=== PATIENT | male | born 1970 | race Caucasian/White ===

== ENCOUNTER 2021-09-13 20:36 | Emergency (ER) | payer OTHER, SELFPAY ==
[2021-09-13 21:12] VITALS: BP 131/88; PULSE 85; RESP 16; TEMP 35.8; O2SAT 94; BMI 29.7
--- NOTE | 2021-09-13 21:46 | ED_ITS ---
HPI - Fever General Date Seen: 09/13/21 Chief Complaint: Fever Stated Complaint: Fever Time Seen by Provider: 09/13/21 21:15 Source: patient Mode of arrival: ambulatory Limitations: no limitations History of Present Illness HPI Narrative: Patient is a 51-year-old gentleman who presents here with fever and chills over the last 3-4 days. He describes fever up to 102- at home. Takes ibuprofen the fever comes down. No other localizing symptoms other than he was bit by something on his right popliteal fossa, he did not remove anything from here and does not think it was a tick. Just a red area. Denies a sore throat, denies cough, denies nausea abdominal pain, slight headache initially, but then this resolved. Describes himself as otherwise healthy, hypertension, No previous history of Lyme disease, did take 2 separate COVID test at home over the past 4 days that were negative. 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.) Exacerbating factors: nothing Relieving factors: acetaminophen and ibuprofen Associated symptoms: denies other symptoms Treatments prior to arrival fever: ibuprofen Related Data Home Medications Medication Instructions Recorded Confirmed atorvastatin 40 mg tablet 40 mg PO .QHS 09/13/21 09/13/21 Previous Rx's Medication Instructions Recorded metoprolol succinate 50 mg 50 mg PO QDAY #90 tab 08/20/21 tablet,extended release 24 hr amlodipine 5 mg tablet 5 mg PO QDAY #90 tab 08/24/21 omeprazole 40 mg capsule,delayed 40 mg PO QDAY #90 cap 08/24/21 release Allergies Allergy/AdvReac Type Severity Reaction Status Date / Time rosuvastatin Allergy Intermediate Hives Verified 09/13/21 21:18 Review of Systems Status of ROS Reports: 10 or more systems reviewed and unremarkable except as noted in History and below [facility] Medical History Chronic low back pain GERD (gastroesophageal reflux disease) Hypertension Surgical History S/P right rotator cuff repair Exam Narrative Exam Narrative: Patient is a very nice 51-year-old gentleman who does not look at all unwell. Nontoxic, speaking to me normally is pupils equal round reactive to light there is no scleral icterus or redness TMs are normal oropharynx normal there is no adenopathy anterior posterior chains chest is clear bilaterally with no wheezing crackles noted heart sounds no clicks murmurs or gallops his abdomen is soft there is no guarding no past splenomegaly bowel sounds are normal. Skin reveals over the right popliteal fossa there is an area of redness with a central area. But not a target lesion. Joints all move normal normal power in his upper lower extremities. No other redness is noted. Const Vital Signs, click to edit/add: Vital Signs - 24 hr 09/13/21 21:12 Temperature 96.4 F L Pulse Rate [Left Pulse Oximeter] 85 Respiratory Rate 16 Blood Pressure [Left Upper Arm] 131/88 Pulse Oximetry 94 Documenting provider has reviewed patient's vital signs: yes Common normals: no apparent distress Course Vital Signs Vital signs: Initial Vital Signs Temperature 96.4 F L 09/13/21 21:12 Temperature Source Temporal Artery Scan 09/13/21 21:12 Pulse Rate 85 09/13/21 21:12 Pulse Rhythm 09/13/21 21:12 Respiratory Rate 16 09/13/21 21:12 Blood Pressure 131/88 09/13/21 21:12 Blood Pressure Mean 102 09/13/21 21:12 Blood Pressure Position Sitting 09/13/21 21:12 Pulse Oximetry 94 09/13/21 21:12 Oxygen Delivery Method 09/13/21 21:12 Vital Signs Temperature 96.4 F L 09/13/21 21:12 Pulse Rate 85 09/13/21 21:12 Respiratory Rate 16 09/13/21 21:12 Blood Pressure 131/88 09/13/21 21:12 Pulse Oximetry 94 09/13/21 21:12 Temperature 96.4 F L 09/13/21 21:12 Pulse Rate 85 09/13/21 21:12 Respiratory Rate 16 09/13/21 21:12 Blood Pressure 131/88 09/13/21 21:12 Pulse Oximetry 94 09/13/21 21:12 MDM - Fever MDM Narrative Medical decision making narrative: Life-threatening differential diagnosis is include meningitis, encephalitis, pneumonia, intra-abdominal infection, bacteremia, other differential diagnosis include but are not limited to viral upper respiratory tract infection, strep, urinary tract infection, skin infection, osteomyelitis, influenza, fungal infections, diskitis, epidural abscess, or fever of unknown origin. I discussed with the patient the laboratory results were all very reassuring with a normal white count, normal LFTs, undo tick-borne illness testing, on the 1st occurrence, this is consistent with up-to-date so recommendation. Follow-up with primary care suggested, but given his history and course in where he works, and his exposure I do not think it is unreasonable to give him a course of doxycycline, 100 mg p.o. b.i.d. for the next 14 days. Differential Diagnosis Differential diagnosis: Likely cellulitis, fever of unknown origin, gastroenteritis, community acquired pneumonia, viral infection, sepsis and influenza Medical Records Attestation: I reviewed the patient's medical records. Lab Data Attestation: I reviewed the patient's lab results. Labs: Lab Results 09/13/21 09/13/21 09/13/21 Range/Units 22:12 22:12 22:12 WBC 4.71 (4.50-11.00) K/uL RBC 4.65 (4.30-5.90) m/uL Hgb 13.9 (13.5-17.5) gm/dL Hct 41.3 (37.0-53.0) % MCV 89 (80-100) fL MCH 30 (26-34) pg MCHC 34 (32-36) gm/dL RDW Coeff of Charles 12.6 (11.5-15.5) % Plt Count 153 (140-440) K/uL Neut % (Auto) 67.3 (42.0-72.0) % Lymph % (Auto) 15.3 L (20-44) % [place] % (Auto) 15.7 H (0.0-11.0) % Eos % (Auto) 1.3 (0.0-7.0) % Baso % (Auto) 0.4 (0.0-3.0) % Neut # (Auto) 3.17 (1.7-7.0) K/uL Lymph # (Auto) 0.70 L (0.90-2.90) K/uL [place] # (Auto) 0.70 (0.00-0.90) K/UL Eos # (Auto) 0.06 (0.00-0.50) K/uL Baso # (Auto) 0.02 (0.00-0.30) K/uL Abs Immat Gran (auto) 0.00 (0.00-0.30) K/uL Lactate 0.9 (0.5-1.9) mmol/L Total Bilirubin 0.6 (0.1-1.5) mg/dL Direct Bilirubin 0.2 (0.0-0.5) mg/dL AST 56 H (12-35) U/L ALT 68 H (4-50) U/L Alkaline Phosphatase 82 (40-150) U/L Total Protein 7.4 (6.0-8.3) g/dL Albumin 4.3 (3.3-5.0) g/dL SARS-CoV-2 (PCR) (Negative) Influenza Type A (PCR) (Negative) Influenza Type B (PCR) (Negative) RSV (PCR) (Negative) Group A Strep DNA (No Detected) 09/13/21 09/13/21 Range/Units 22:12 22:12 WBC (4.50-11.00) K/uL RBC (4.30-5.90) m/uL Hgb (13.5-17.5) gm/dL Hct (37.0-53.0) % MCV (80-100) fL MCH (26-34) pg MCHC (32-36) gm/dL RDW Coeff of Charles (11.5-15.5) % Plt Count (140-440) K/uL Neut % (Auto) (42.0-72.0) % Lymph % (Auto) (20-44) % [place] % (Auto) (0.0-11.0) % Eos % (Auto) (0.0-7.0) % Baso % (Auto) (0.0-3.0) % Neut # (Auto) (1.7-7.0) K/uL Lymph # (Auto) (0.90-2.90) K/uL [place] # (Auto) (0.00-0.90) K/UL Eos # (Auto) (0.00-0.50) K/uL Baso # (Auto) (0.00-0.30) K/uL Abs Immat Gran (auto) (0.00-0.30) K/uL Lactate (0.5-1.9) mmol/L Total Bilirubin (0.1-1.5) mg/dL Direct Bilirubin (0.0-0.5) mg/dL AST (12-35) U/L ALT (4-50) U/L Alkaline Phosphatase (40-150) U/L Total Protein (6.0-8.3) g/dL Albumin (3.3-5.0) g/dL SARS-CoV-2 (PCR) Negative SARS-CoV-2 (Negative) Influenza Type A (PCR) Negative PCR FLU A (Negative) Influenza Type B (PCR) Negative PCR FLU B (Negative) RSV (PCR) Negative PCR RSV (Negative) Group A Strep DNA NOT DETECTED (No Detected) ABG Data Attestation: I personally reviewed and interpreted this ABG as follows: Imaging Data Chest x-ray: Attestation: I have reviewed the pertinent imaging results. My impression: Negative chest Radiologist's impression: Negative chest Discharge Plan Discharge Clinical Impression: Fever Qualifiers: Fever type: unspecified Qualified Code(s): R50.9 - Fever, unspecified Insect bite Qualifiers: Site of insect bite: lower leg Patient Disposition: Home, Self-Care Condition: Stable Instructions: Tick Bite (ED), Fever in Adults (ED) Activity Detail: home, rest and follow up with primary care if ongoing symptoms Prescriptions: No Action atorvastatin 40 mg tablet 40 mg PO .QHS 0RF Label Comments: TAKE 1 TABLET BY MOUTH AT BEDTIME metoprolol succinate 50 mg tablet extended release 24 hr 50 mg PO QDAY Qty: 90 1RF omeprazole 40 mg capsule,delayed release(DR/EC) 40 mg PO QDAY Qty: 90 3RF amlodipine 5 mg tablet 5 mg PO QDAY Qty: 90 1RF Follow Up/Referrals: Wayne Mcdowell MD [Primary Care Provider] - Stand Alone Forms: [employer] Info Instructions
--- NOTE | 2021-09-13 21:50 | CRLHL7_ITS ---
For Patients: As a result of the Cures Act, medical imaging exams and procedure reports are released immediately into your electronic medical record. You may view this report before your referring provider. If you have questions, please contact your health care provider. INDICATION: Shortness of breath. Fever TECHNIQUE: Chest radiograph 2 views COMPARISON: None FINDINGS: Mediastinum: The mediastinum is normal in appearance. The heart silhouette is normal in size and morphology. Lung: Both lungs are unremarkable in appearance. No sign of pleural effusion seen. No pneumothorax is identified. Bone and Soft tissue: Unremarkable for age. A left chest loop recorder is noted. IMPRESSION: 1. No acute cardiopulmonary disease is seen. Dictated by: Justin Carbajal MD @ 09/13/2021 23:09:09 (Electronically Signed)
[2021-09-13 22:16] LABS: Lactate* 0.9 mmol/L (0.5-1.9)
[2021-09-13 22:24] LABS: Basophils Absolute Auto 0.02 K/uL (0.00-0.30); Basophils Percent Auto 0.4 % (0.0-3.0); Eosinophils Absolute Auto 0.06 K/uL (0.00-0.50); Eosinophils Percent Auto 1.3 % (0.0-7.0); Hematocrit 41.3 % (37.0-53.0); Hemoglobin* 13.9 gm/dL (13.5-17.5); Lymphocytes Percent Auto 15.3 % (20-44); Mean Corpuscular HGB Conc 34 gm/dL (32-36); Mean Corpuscular Hemoglobin 30 pg (26-34); Mean Corpuscular Volume 89 fL (80-100); Monocytes Percent Auto 15.7 % (0.0-11.0); Neutrophils Absolute Auto 3.17 K/uL (1.7-7.0); Neutrophils Percent Auto 67.3 % (42.0-72.0); Platelet Count* 153 K/uL (140-440); RDW Coefficient of Variation % 12.6 % (11.5-15.5); Red Blood Count 4.65 m/uL (4.30-5.90); White Blood Count* 4.71 K/uL (4.50-11.00)
[2021-09-13 22:40] LABS: Albumin* 4.3 g/dL (3.3-5.0)
[2021-09-13 22:43] LABS: Aspartate Amino Transferase* 56 U/L (12-35); Bilirubin Direct* 0.2 mg/dL (0.0-0.5); Bilirubin Total* 0.6 mg/dL (0.1-1.5); Total Protein* 7.4 g/dL (6.0-8.3)
[2021-09-13 22:44] LABS: Alanine Aminotransferase* 68 U/L (4-50); Alkaline Phosphatase* 82 U/L (40-150)
[2021-09-13 23:08] LABS: Slide Review Reflex No; Strep A DNA Probe* NOT DETECTED (No Detected)
[2021-09-13 23:21] LABS: PCR FLU A Negative PCR FLU A (Negative); PCR FLU B Negative PCR FLU B (Negative); PCR RSV Negative PCR RSV (Negative)
[2021-09-13 23:35] LABS: SARS PCR* Negative SARS-CoV-2 (Negative)
== END 2021-09-13 23:45 | disposition home or self-care (01) ==
LOC: ED 23:44
PROVIDERS: Emergency Provider Family Medicine; PCP Family Medicine
DX: R50.9 Fever, unspecified (principal); S80.861A Insect bite (nonvenomous), right lower leg, initial encounter
CPT/HCPCS: 36415; 71046; 80076; 83605; 85025; 87040; 87502; 87634; 87635; 87651; 99284

== ENCOUNTER 2021-10-13 09:38 | Outpatient (CLI) | payer OTHER, SELFPAY ==
[2021-10-13 15:19] LABS: Chloride* 105 mmol/L (96-114); Potassium* 4.4 mmol/L (3.6-5.1); Sodium* 141 mmol/L (135-149)
[2021-10-13 15:21] LABS: Creatinine* 0.9 mg/dL (0.5-1.5); Estimated Glomerular Filt Rate 104 ml/min
[2021-10-13 15:22] LABS: Blood Urea Nitrogen* 14 mg/dL (7-30); Calcium* 9.4 mg/dL (8.4-10.6); Carbon Dioxide* 27 mmol/L (20-32); Glucose* 101 mg/dL (60-115)
== END 2021-10-13 09:39 | disposition home or self-care (01) ==
PROVIDERS: PCP Family Medicine; Visit Provider Family Medicine
DX: I10 Essential (primary) hypertension (principal); W57.XXXA Bitten or stung by nonvenomous insect and other nonvenomous arthropods, initial encounter
CPT/HCPCS: 80048; 86618

== ENCOUNTER 2022-12-03 08:51 | Outpatient (CLI) | payer OTHER, SELFPAY | END 2022-12-03 08:52 | disposition home or self-care (01) | PROVIDERS: PCP Family Medicine; Visit Provider Family Medicine | DX: Z12.5 Encounter for screening for malignant neoplasm of prostate (principal); I10 Essential (primary) hypertension; E78.2 Mixed hyperlipidemia; K21.9 Gastro-esophageal reflux disease without esophagitis | CPT/HCPCS: 80048; 80061; 84153; 84460 ==

== ENCOUNTER 2024-02-23 09:27 | Outpatient (CLI) | payer OTHER, SELFPAY ==
[2024-02-23 14:37] LABS: Chloride* 101 mmol/L (96-114); Potassium* 4.6 mmol/L (3.6-5.1); Sodium* 140 mmol/L (135-149)
[2024-02-23 14:39] LABS: Cholesterol* 152 mg/dL (90-199)
[2024-02-23 14:40] LABS: Alanine Aminotransferase* 51 U/L (4-50); Anion Gap 8 mEq/L (7-15); Blood Urea Nitrogen* 14 mg/dL (7-30); Calcium* 9.3 mg/dL (8.4-10.6); Carbon Dioxide* 31 mmol/L (20-32); Creatinine* 0.9 mg/dL (0.5-1.5); Estimated Glomerular Filt Rate 103 ml/min; Glucose* 108 mg/dL (60-115); Triglycerides* 182 mg/dL (40-149)
[2024-02-23 14:41] LABS: HDL Cholesterol* 33 mg/dL (>=40); LDL Cholesterol Calculated 83 mg/dL (<100)
[2024-02-23 15:12] LABS: PSA Screen* 0.96 ng/mL (0.10-4.00)
== END 2024-02-23 09:28 | disposition home or self-care (01) ==
PROVIDERS: PCP Family Medicine; Visit Provider Family Medicine
DX: I10 Essential (primary) hypertension (principal); E78.2 Mixed hyperlipidemia; Z12.5 Encounter for screening for malignant neoplasm of prostate
CPT/HCPCS: 80048; 80061; 84460; G0103

== ENCOUNTER 2024-06-26 09:09 | Outpatient (CLI) | payer OTHER, SELFPAY ==
--- NOTE | 2024-06-26 09:15 | MR_ITS ---
[address] [address] Phone:?[phone] Fax:?[phone] Referring Physician Information: Terell Mercedes M.D. [id number] [facility] [address] Phone:?[phone] Fax:?[phone] Patient:Rodriguez Dunlap.O.B:?1970 Sex:?Male Phone:?[phone] [facility] MRN:?[id number] Exam Date:?06/26/2024 EXAM: MRI OF THE LEFT SHOULDER CLINICAL INFORMATION: The patient is a 53-year-old with left shoulder pain. Evaluate rotator cuff. PRIOR SURGERY: None reported. COMPARISON STUDIES: Comparison is made to the prior MRI examination dated 08/08/2020. TECHNICAL INFORMATION: Imaging was performed on a high-field, 1.5 Chio MR scanner. Axial, coronal, and sagittal proton-density and T2 imaging was performed in addition to coronal STIR imaging. FINDINGS: Articular/Extraarticular collections: Effusion: Minimal. Subacromial/subdeltoid: Mild to moderate fluid is seen within the subacromial/subdeltoid bursa, in keeping with changes of bursitis. Subcoracoid: Mild to moderate fluid is seen within the subcoracoid bursa, in keeping with changes of bursitis. Osseous structures: Proximal humerus: Cortical irregularity, subcortical cystic change, and subcortical edema can be seen involving the greater and lesser tuberosity regions, in keeping with the rotator cuff pathology discussed below. There is no evidence for greater or lesser tuberosity fracture. No Hill-Sachs or reverse Hill-Sachs lesion is identified. Glenoid: No acute bony abnormality of the glenoid fossa or glenoid neck can be seen. Acromioclavicular joint: Mild to moderate changes of acromioclavicular joint arthrosis are present and can be seen on coronal series 5 image 14 and on sagittal series 9 image 14. Coracoacromial arch: Acromion morphology: Type II. No evidence for os acromiale. Acromiohumeral space: Mildly narrowed. Coracohumeral space: Moderately narrowed. Rotator cuff and deltoid: Supraspinatus: Moderate changes of supraspinatus tendinosis can be seen. There is a superimposed focus of full-thickness or near full-thickness tearing of the anterior and distal tendon fibers, seen to best advantage on coronal series 5 images 13 and 14 and on sagittal series 9 image 6. The area of tearing measures 8 mm in mediolateral dimension and 9 mm in anteroposterior dimension. No evidence for retraction is seen, however the findings have progressed in appearance when compared to the prior study. No atrophic changes of the supraspinatus muscle belly are identified. Infraspinatus: Moderate infraspinatus tendinosis can be seen. No full or partial-thickness tearing is identified. No atrophic changes of the infraspinatus muscle belly are present. Teres minor: No evidence for tendinosis, tearing, or associated muscle belly atrophy. Subscapularis: Moderate subscapularis tendinosis can be seen. There is no evidence for full or partial-thickness tearing. No atrophic changes of the subscapularis muscle belly are noted. Deltoid: No evidence for strain or tearing. Biceps tendon: The intra-articular and biceps sulcus portions of the biceps tendon are normal. There is no evidence for rupture, dislocation, or subluxation. Glenohumeral joint and labrum: Articular Cartilage: No well-defined full-thickness chondral defects can be seen along the articular surfaces of the glenohumeral articulation. No osteoarthritic changes are seen. Labrum: Poorly defined tearing of the superior and posterior portions of the glenoid labrum can be seen without evidence for injury to the anterior or inferior portions of the labrum. No paralabral ganglion cyst formation is identified. Capsular Soft Tissues: No definite capsular abnormalities of the glenohumeral joint are seen. No evidence for capsular tearing is present and there are no MR signs of adhesive capsulitis. CONCLUSION: 1. Moderate supraspinatus, infraspinatus, and subscapularis tendinosis with a focal area of full-thickness or near full-thickness tearing involving the anterior and distal tendon fibers as described above. The tearing has progressed in appearance when compared to the prior examination. 2. Mild to moderate bursitis can be seen involving the subacromial/subdeltoid and subcoracoid bursae. 3. Mild to moderate acromioclavicular joint arthrosis with mild narrowing of the acromiohumeral space. 4. The long head of the biceps tendon appears intact. 5. Poorly defined tearing of the superior and posterior portions of the glenoid labrum. AEC Electronically signed on 06/26/2024 12:08:00 PM by Vitaliy Julien M.D.
== END 2024-06-26 09:10 | disposition home or self-care (01) ==
PROVIDERS: PCP Family Medicine; Visit Provider Orthopaedic Surgery Sports Medicine
DX: M25.512 Pain in left shoulder (principal); M75.102 Unspecified rotator cuff tear or rupture of left shoulder, not specified as traumatic; M75.52 Bursitis of left shoulder; M19.012 Primary osteoarthritis, left shoulder; S43.432A Superior glenoid labrum lesion of left shoulder, initial encounter
CPT/HCPCS: 73221

== ENCOUNTER 2024-07-20 11:35 | Outpatient (CLI) | payer OTHER, SELFPAY | END 2024-07-20 11:36 | disposition home or self-care (01) | PROVIDERS: PCP Family Medicine; Visit Provider Family Medicine | DX: I10 Essential (primary) hypertension (principal); Z01.818 Encounter for other preprocedural examination | CPT/HCPCS: 80048; 85025 ==

== ENCOUNTER 2024-07-26 09:12 | Day surgery (SDC) | payer OTHER, SELFPAY ==
[2024-07-26] VITALS (13 sets, daily range): BP systolic 115–144; BP diastolic 77–95; PULSE 50–64; RESP 16–18; TEMP 35.9–36.5; O2SAT 92–98; BMI 30.7
[2024-07-26] MEDS: SODIUM CHLORIDE 0.9 % (FLUSH) 10 ML SYRINGE IVF (09:34)
[2024-07-26] MEDS: LACTATED RINGERS 1000 ML 1,000 ML 100 ML IV (09:34)
[2024-07-26] MEDS: fentaNYL 100 MCG/2 ML inj IVP (12:25)
[2024-07-26] MEDS: MIDAZOLAM HCL 1 MG/ML inj IVP (12:25)
--- NOTE | 2024-07-26 12:29 | W.PM.NB ---
Nerve Block Nerve Block Time Seen by Provider: 12:28 Date Seen: 07/26/24 Type of block requested by surgeon for post-operative analgesia: supraclavicular Side: left Time out performed: Yes Verification of patient name: Yes Verification of date of : Yes Site marking: site marked Name of person performing procedure: Bear Continuous monitoring Was continuous monitoring of O2 sat, B/P, cardiac care nurse, recorded every 15 minutes?: Yes Procedure Checklist: sterile prep, needles and gloves Ultrasound guided. Images saved: Yes Medications given in 5ml increments after negative aspiration: Marcaine %: 0.25 mL: 5 Needle gauge: 22 and Exparel mL: 10 Precedex (mcg): 25 Patient tolerated procedure well: Yes Block Charges Block Charge (with Pro Fee): Brachial Plexus Use of Ultrasound Machine for Block: Yes- US Guidance/pain block
--- NOTE | 2024-07-26 12:30 | P.ANES_ITS ---
Anesthesia Charges Start Date/Time Anesthesia Start Date: 07/26/24 Anesthesia Start Time: 12:49 Stop Date/Time Anesthesia Stop Date: 07/26/24 Anesthesia Stop Time: 16:30 Coding CPT Codes CPT Codes: ANESTH SURGERY OF SHOULDER - 68173 ([id number]) P2 - PATIENT W/MILD SYST DISEASE, QK - TOOL CHASER 2-4 CNCRNT ANES PROC, QX - PAPER TWISTER TENDER SVC W/ MD MED DIRECTION
--- NOTE | 2024-07-26 12:30 | W.ANESCHARGE ---
Anesthesia Charges Start Date/Time Anesthesia Start Date: 07/26/24 Anesthesia Start Time: 12:49 Stop Date/Time Anesthesia Stop Date: 07/26/24 Anesthesia Stop Time: 16:30 Coding CPT Codes CPT Codes: ANESTH SURGERY OF SHOULDER - 55836 ([id number]) P2 - PATIENT W/MILD SYST DISEASE, QK - SCARIFIER OPERATOR 2-4 CNCRNT ANES PROC, QX - SECURITY SYSTEMS TECHNICIAN SVC W/ MD MED DIRECTION
--- NOTE | 2024-07-26 12:36 | SUR.PREOP ---
TIME?OUT:?1225 PT/RN/MDA?VERIFICATION?OF?SURGICAL?SITE,?PROCEDURE,?AND?CONSENT OBTAINED?PRIOR?TO?INVASIVE?PROCEDURE.
--- NOTE | 2024-07-26 13:05 | W.ANESCHARGE ---
Anesthesia Charges Start Date/Time Anesthesia Start Date: 07/26/24 Anesthesia Start Time: 12:49 Stop Date/Time Anesthesia Stop Date: 07/26/24 Coding CPT Codes CPT Codes: ANESTH SURGERY OF SHOULDER - 04532 ([id number]) P2 - PATIENT W/MILD SYST DISEASE, QK - CAR PICK UP DRIVER 2-4 CNCRNT ANES PROC, QX - INSTRUMENT AND ELECTRICAL TECHNICIAN SVC W/ MD MED DIRECTION
--- NOTE | 2024-07-26 13:05 | P.ANES_ITS ---
Anesthesia Charges Start Date/Time Anesthesia Start Date: 07/26/24 Anesthesia Start Time: 12:49 Stop Date/Time Anesthesia Stop Date: 07/26/24 Coding CPT Codes CPT Codes: ANESTH SURGERY OF SHOULDER - 82590 ([id number]) P2 - PATIENT W/MILD SYST DISEASE, QK - ENVELOPE SEALER OPERATOR 2-4 CNCRNT ANES PROC, QX - QUILL BUNCHER AND SORTER SVC W/ MD MED DIRECTION
[2024-07-26] MEDS: CEFAZOLIN 1 GM inj IVP (13:06)
[2024-07-26] MEDS: EPINEPHrine 1 MG in SODIUM CHLORIDE IRRIG SOLUTION 3,000 ML 9003 MG IRRIGATION ×3 (13:10→13:50)
--- NOTE | 2024-07-26 14:20 | W.PM.H&PU ---
History & Physical Update History & Physical Update H&P Reviewed and patient assessed: No changes noted
--- NOTE | 2024-07-26 14:24 | PM.ORPRC ---
Procedure Note Date of procedure: 07/26/24 Procedure: PREOPERATIVE DIAGNOSES: 1. Left shoulder rotator cuff tear. 2. Left shoulder AC joint arthrosis, primary, moderate-severe 3. Left shoulder anterosuperiorlabral tearing 4. Left shoulder subacromial impingement syndrome. POSTOPERATIVE DIAGNOSES: 1. Left shoulder rotator cuff tear - upper subscapularis and anterior supraspinatus 2. Left shoulder AC joint arthrosis, primary, moderate-severe 3. Left shoulder anterosuperiorlabral tearing 4. Left shoulder subacromial impingement syndrome. NAME OF OPERATION: 1. Left shoulder arthroscopic rotator cuff repair - upper subscapularis and anterior supraspinatus 2. Left shoulder arthroscopic distal clavicle excision 3. Left shoulder arthroscopic limited glenohumeral debridement 4. Left shoulder arthroscopic bursectomy, subacromial decompression/partial acromioplasty. SURGEON: Terell Mercedes MD SCHEDULE ANNOUNCER: Jono Taylor PA-C. Of note, a skilled service center assistant was critical for this case to aide in patient positioning, suture manipulation, arm positioning, instrument positioning, and closure. ANESTHESIA: General plus preoperative supraclavicular block. EBL: 25 mL IMPLANTS: Arthrex 4.75 mm BioComposite SwiveLock suture anchor (x2) COMPLICATIONS: None evident INDICATIONS: The patient is a pleasant, 53-year-old male who has experienced left shoulder pain that has been increasing in recent time. Physical exam and imaging were consistent with a rotator cuff tear. Given their findings, as well as the weakness and pain, and inadequate response to nonoperative management, recommendation was made for surgery. FINDINGS: Exam under anesthesia revealed stable shoulder with excellent range of motion. The diagnostic arthroscopy revealed healthy chondral surfaces of the glenohumeral joint. The Subscapularis tendon was torn from its upper border with mild retraction. The long head of the biceps tendon was intact and within the bicipital groove. The superior rotator cuff tendon was found to be torn and high-grade partial-thickness manner through the anterior 1/2 of the supraspinatus, approximately. The labrum was degeneratively frayed in the anterosuperior aspects. No loose bodies were identified within the pouch or subscapularis recess. PROCEDURE: Following a thorough discussion of risks, benefits, and alternatives, consent was obtained and the left shoulder was marked. The patient was brought to the operating room and placed supine on the operating table. Induction of anesthesia was completed after preoperative supraclavicular block was administered in preop holding. Appropriate time out was performed identifying proper patient, site, and procedure. 2 g IV Ancef was administered within 1 hour of incision preoperatively. The left upper extremity was prepped and draped in the appropriate sterile fashion using ChloraPrep prep. This was after the patient was positioned in the beach chair with their head in neutral alignment and all bony prominences well padded. The shoulder was insufflated with 20mL of normal saline via an 18g spinal needle from a posterior approach. An 11 blade skin incision allowed a blunt trochar to be inserted and diagnostic arthroscopy to be performed with the findings as noted above. An anterior portal was established with an outside in technique. This allowed the probe to be inserted and confirm the diagnostic arthroscopic findings. The shaver was then inserted and allowed debridement of the anterosuperior labrum. Following this, the upper border subscapularis was repaired after debriding the lesser tuberosity with the shaver and Vale cautery. Subscapularis was captured in horizontal mattress fashion with a fiber tape suture. The tails were brought to a single anchor in the lesser tuberosity with excellent reapproximation of the subscap tendon and good excursion/tension. Thereafter, the subacromial space was entered. Here, a complete bursectomy and partial acromioplasty/subacromial decompression was performed with a combination of radiofrequency ablator, the shaver, and a 5.5 mm bur. Additionally, distal clavicle excision was performed with the bur. 8 mm of distal clavicle was resected based on the width of our bur. Further inspection of the supraspinatus and infraspinatus rotator cuff was performed. This identified the tear as noted above. The margins of the tear were debrided, and the greater tuberosity was debrided with a combination of the apollo cautery, shaver, and bur on reverse setting.[ In medial 4.75 mm BioComposite SwiveLock suture anchor was placed with preloaded FiberTapes. The 2 tapes were passed independently, and 2 eyelet suture tails were also passed independently. This was performed after gentle decortication of the greater tuberosity. These 4 tails were brought to a single lateral row anchor (4.75 mm BioComposite SwiveLock suture anchor. The rotator cuff showed excellent reapproximation of the greater tuberosity with good security upon probing. Prior to anchor driver license technician removal, the eyelet sutures were tugged on for each anchor and found that the anchor had excellent stability within the bone. The shoulder was placed through range of motion and found to be stable. The rotator cuff was re-probed and found to be stable. Instruments were removed. Excess fluid was drained, closure performed with 4-0 Monocryl and Steri-Strips. Dressings were applied. Sling was applied. The patient was awoken from anesthesia and transferred to the PACU in stable condition. A skilled service center assistant was critical for this case to aid in patient positioning, limb positioning, skill to manipulate arthroscopic instruments and camera, suture management, patient safety, and closure. PLAN: 1. Elbow, forearm, wrist and digit range of motion of operative extremity as tolerated. 2. Encouraged ice. 3. Oxycodone for pain as needed. 4. Sling at all times except for ROM and showering. 5. Follow up with PA visit in 1-2 weeks for wound check. Initiate physical therapy following that visit for passive range of motion. Initiate active assisted range of motion at 3-4 weeks. May do pendulums now.
--- NOTE | 2024-07-26 14:38 | P.ANES_ITS ---
Anesthesia Charges Start Date/Time Anesthesia Start Date: 07/26/24 Anesthesia Start Time: 12:49 Stop Date/Time Anesthesia Stop Date: 07/26/24 Anesthesia Stop Time: 16:30 Coding CPT Codes CPT Codes: ANESTH SURGERY OF SHOULDER - 18725 ([id number]) P2 - PATIENT W/MILD SYST DISEASE, QK - DIRECTOR OF PARTNERSHIPS 2-4 CNCRNT ANES PROC, P6 - BRAIN- PT ORGANS REMOVED
--- NOTE | 2024-07-26 14:38 | W.ANESCHARGE ---
Anesthesia Charges Start Date/Time Anesthesia Start Date: 07/26/24 Anesthesia Start Time: 12:49 Stop Date/Time Anesthesia Stop Date: 07/26/24 Anesthesia Stop Time: 16:30 Coding CPT Codes CPT Codes: ANESTH SURGERY OF SHOULDER - 93734 ([id number]) P2 - PATIENT W/MILD SYST DISEASE, QK - POLISHER ALUMINUM 2-4 CNCRNT ANES PROC, P6 - BRAIN- PT ORGANS REMOVED
== END 2024-07-26 16:02 | disposition home or self-care (01) ==
LOC: OR 09:13
PROVIDERS: PCP Family Medicine; Visit Provider Orthopaedic Surgery Sports Medicine
PROC: (CPT 29805; principal; 2024-07-26 11:15)
DX: M75.122 Complete rotator cuff tear or rupture of left shoulder, not specified as traumatic (principal); M19.012 Primary osteoarthritis, left shoulder; S43.432A Superior glenoid labrum lesion of left shoulder, initial encounter; M75.42 Impingement syndrome of left shoulder; G89.18 Other acute postprocedural pain; I10 Essential (primary) hypertension; K21.9 Gastro-esophageal reflux disease without esophagitis
CPT/HCPCS: 29827; 29826; 29824; 29822; 01630; 64415; 76942; C1713; J0171; J0665; J0666; J0690; J1100; J2250; J2371; J2405; J2704; J3010; J3490; J7120; L3670

== ENCOUNTER 2025-01-15 10:27 | Outpatient (CLI) | payer OTHER, SELFPAY | END 2025-01-15 10:28 | disposition home or self-care (01) | LOC: FBOREF 10:28 | PROVIDERS: PCP Family Medicine; Visit Provider Family Medicine | DX: G89.29 Other chronic pain (principal); M54.50 Low back pain, unspecified | CPT/HCPCS: 86812 ==

== ENCOUNTER 2025-01-26 13:56 | Outpatient (CLI) | payer OTHER, SELFPAY ==
--- NOTE | 2025-01-26 14:30 | CRLHL7_ITS ---
For Patients: As a result of the Century Cures Act, medical imaging exams and procedure reports are released immediately into your electronic medical record. You may view this report before your referring provider. If you have questions, please contact your health care provider. INDICATION: Low back pain. COMPARISON: 01/09/2020. Technique Sagittal T1, T2, and STIR sequences. Axial T1 and T2 weighted sequences. FINDINGS: Normal vertebral body alignment. No fractures. No vertebral body loss of height. No spondylolisthesis. No ligamentous injury. No suspicious osseous lesions. Normal conus terminates at L1. T12 L1-2: No spinal canal neural foraminal narrowing. L2-3: Disc degeneration diffuse disc bulge eccentric to the left. No narrowing of spinal canal. No neural foraminal narrowing. L3-4: Disc degeneration diffuse disc bulge eccentric to the left. No narrowing of spinal canal. Mild narrowing of the left neural foramen. No narrowing of the right neural foramen. L4-5: Disc degeneration loss disc height. Posterior disc herniation measures approximately 3 mm short axis. Mild narrowing of spinal canal. Tiny central annular fissure. Mild narrowing of bilateral foramina. Mild facet arthropathy. L5-S1: Disc degeneration post disc herniation. No narrowing of spinal canal. No impingement of the traversing S1 nerve roots. Mild narrowing of the left neural foramen. Mild facet arthropathy. Degenerative changes of the SI joints. Normal paraspinal soft tissues. IMPRESSION: 1. Normal alignment. No fractures 2. At L3-4, no spinal canal narrowing. Mild narrowing of left neural foramen 3. At L4-5, disc degeneration. Posterior disc herniation. Mild narrowing of the spinal canal. Tiny central annular fissure. Mild narrowing of the bilateral neural foramina 4. At L5-S1, mild narrowing of the left neural foramen Dictated by Fermín Shaw MD @ 01/27/2025 10:27:00 PM (Electronically Signed)
== END 2025-01-26 13:57 | disposition home or self-care (01) ==
LOC: MRI 13:56
PROVIDERS: PCP Family Medicine; Visit Provider Family Medicine
DX: M51.27 Other intervertebral disc displacement, lumbosacral region (principal); M51.26 Other intervertebral disc displacement, lumbar region; M48.061 Spinal stenosis, lumbar region without neurogenic claudication; M51.360 Other intervertebral disc degeneration, lumbar region with discogenic back pain only; M47.896 Other spondylosis, lumbar region
CPT/HCPCS: 72148